=== PATIENT | female | born 1960 | race Caucasian/White ===

== ENCOUNTER 2016-08-16 14:51 | Outpatient (CLI) | payer BC | END 2016-08-16 14:52 | disposition home or self-care (01) | DX: M06.00 Rheumatoid arthritis without rheumatoid factor, unspecified site (principal); Z79.899 Other long term (current) drug therapy ==

== ENCOUNTER 2016-11-19 19:48 | Outpatient (CLI) | payer BC | END 2016-11-19 19:49 | disposition EMS.NT | LOC: EMS 19:48 | PROVIDERS: ATTEND Surgery | DX: S01.01XA Laceration without foreign body of scalp, initial encounter (principal); W18.30XA Fall on same level, unspecified, initial encounter; Y93.01 Activity, walking, marching and hiking; Y92.008 Other place in unspecified non-institutional (private) residence as the place of occurrence of the external cause ==